=== PATIENT | male | born 1985 | race Caucasian/White ===

== ENCOUNTER 2017-04-07 23:46 | Emergency (ER) | payer SELFPAY ==
--- NOTE | 2017-04-08 04:01 | XRay Report ---
FINAL REPORT EXAM: XR FEMUR 2+V LT HISTORY: r/o fx of femur due inkury from nail gun COMPARISONS: None. FINDINGS: AP and lateral views left femur No radiodense foreign body, bone lesion, periosteal reaction, or fracture. No deformity or gross malalignment. No acute left hip or knee joint findings. IMPRESSION: No radiodense foreign body or fracture involving the left femur/thigh.
--- NOTE | 2017-04-08 04:03 | XRay Report ---
FINAL REPORT EXAM: XR PELVIS 1-2V HISTORY: r/o fragment for nail gun injury COMPARISONS: None. FINDINGS: AP pelvis radiograph Hip joint spaces are intact. No radiodense foreign bodies. Sacroiliac joints and pubic symphysis are unremarkable. No fractures. Small osseous bumps are present at the lateral aspect of the right and left femoral head neck junction IMPRESSION: No radiodense foreign body or fracture in the pelvis.
[2017-04-08 04:23] VITALS: BP 109/63
[2017-04-08] MEDS ORDERED: MOTRIN PO ONE ×2 (04:26→04:27)
[2017-04-08] MEDS ORDERED: NORCO 5/325 PO ONE (04:26)
[2017-04-08] MEDS ORDERED: ZOFRAN ODT PO ONE (04:26)
[2017-04-08] MEDS ORDERED: NORCO 5/325 ONE (04:27)
[2017-04-08] MEDS ORDERED: ZOFRAN ODT ONE (04:27)
[2017-04-08] MEDS ORDERED: BOOSTRIX IM ONE (04:27)
--- NOTE | 2017-04-08 05:55 | Emergency Department Report ---
- General Chief Complaint: Puncture Wound Stated Complaint: LT LEG PAIN Time Seen by Provider: 04/08/17 04:26 Source: patient Mode of arrival: Ambulatory Limitations: No Limitations - History of Present Illness Initial Comments: 31-year-old male past medical history none presents with complaint of accidentally shooting his own left leg with a nail gun. Patient states he was at work approximately 12 hours ago and accidentally discharged nail gun. Nail hit his left inner thigh. Now was approximately 2 inches long. Patient states he immediately was able to grasp nail and remove vitamins entirety. Patient denies any foreign body sensation but is complaining of puncture wound to left leg. No active bleeding as per patient in the last 12 hours. Patient does not know his tetanus vaccine status. Denies allergies to any medicines. Patient speaks Swedish which I speak fluently. Onset/Timin -: hour(s) Extremity Location: Left: Thigh 1 - Puncture wound here - Related Data Previous Rx's Medication Instructions Recorded Last Taken Type Acetaminophen/Codeine [Tylenol 1 tab PO Q6H PRN #12 tab 04/08/17 Unknown Rx /Codeine # 3 tab] Bacitracin Zinc Oint [Antibiotic 1 applicatio TP BID #1 tube 04/08/17 Unknown Rx Oint] Cephalexin [Keflex] 500 mg PO BID #14 capsule 04/08/17 Unknown Rx Ibuprofen [Motrin] 600 mg PO Q8H PRN #30 tablet 04/08/17 Unknown Rx Allergies Allergy/AdvReac Type Severity Reaction Status Date / Time No Known Allergies Allergy Unverified 04/08/17 02:41 ED Review of Systems ROS: Stated complaint: LT LEG PAIN Other details as noted in HPI Constitutional: denies: chills, fever Eyes: denies: eye pain, eye discharge, vision change ENT: denies: ear pain, throat pain Respiratory: denies: cough, shortness of breath, wheezing Cardiovascular: denies: chest pain, palpitations Endocrine: no symptoms reported Gastrointestinal: denies: abdominal pain, nausea, diarrhea Genitourinary: denies: urgency, dysuria Musculoskeletal: denies: back pain, joint swelling, arthralgia Skin: denies: rash, lesions Neurological: denies: headache, weakness, paresthesias Psychiatric: denies: anxiety, depression Hematological/Lymphatic: denies: easy bleeding, easy bruising ED Past Medical Hx - Past Medical History Previous Medical History?: No - Surgical History Past Surgical History?: No - Social History Smoking Status: Never Smoker Substance Use Type: None - Medications Home Medications: Home Medications Medication Instructions Recorded Confirmed Last Taken Type Acetaminophen/Codeine [Tylenol 1 tab PO Q6H PRN #12 tab 04/08/17 Unknown Rx /Codeine # 3 tab] Bacitracin Zinc Oint [Antibiotic 1 applicatio TP BID #1 tube 04/08/17 Unknown Rx Oint] Cephalexin [Keflex] 500 mg PO BID #14 capsule 04/08/17 Unknown Rx Ibuprofen [Motrin] 600 mg PO Q8H PRN #30 tablet 04/08/17 Unknown Rx ED Physical Exam - General Limitations: No Limitations General appearance: alert, in no apparent distress - Head Head exam: Present: atraumatic, normocephalic - Eye Eye exam: Present: normal appearance, PERRL, EOMI - ENT ENT exam: Present: mucous membranes moist - Neck Neck exam: Present: normal inspection - Respiratory Respiratory exam: Present: normal lung sounds bilaterally. Absent: respiratory distress - Cardiovascular Cardiovascular Exam: Present: regular rate, normal rhythm. Absent: systolic murmur, diastolic murmur, rubs, gallop - GI/Abdominal GI/Abdominal exam: Present: soft, normal bowel sounds - Rectal Rectal exam: Present: deferred - Extremities Exam Extremities exam: Present: normal inspection - Expanded Lower Extremity Exam Left Hip exam: Present: normal inspection, full ROM Upper Leg exam: Present: laceration (small less than 1 cm puncture wound left anterior thigh. No active bleeding. No erythema.) Knee exam: Present: normal inspection, full ROM - Back Exam Back exam: Present: normal inspection - Neurological Exam Neurological exam: Present: alert, oriented X3 - Psychiatric Psychiatric exam: Present: normal affect, normal mood - Skin Skin exam: Present: warm, dry, intact, normal color. Absent: rash ED Course Vital Signs 04/08/17 04/08/17 04/08/17 02:32 04:22 04:37 Temperature 98 F Pulse Rate 74 61 Respiratory 18 18 18 Rate Blood Pressure 132/80 Blood Pressure 109/63 [Right] O2 Sat by Pulse 98 98 Oximetry ED Medical Decision Making - Medical Decision Making A/P: Puncture wound left thigh 1-x-rays of the left femur and hip region show no metallic foreign body. Puncture wound less than 1 cm no active bleeding 2-tetanus vaccine update today 3-short course Keflex 4- educated patient on acute wound care. 5- left lower extremity neurovascularly intact patient is ambulatory with good distal pulses and sensation left leg. Critical care attestation.: If time is entered above; I have spent that time in minutes in the direct care of this critically ill patient, excluding procedure time. ED Disposition Clinical Impression: Puncture wound of left thigh Qualifiers: Encounter type: initial encounter Qualified Code(s): S71.132A - Puncture wound without foreign body, left thigh, initial encounter Disposition: TO HOME OR SELFCARE Is pt being admited?: No Does the pt Need Aspirin: No Condition: Stable Instructions: Puncture Wound (ED), Acute Wound Care (ED) Prescriptions: Acetaminophen/Codeine [Tylenol /Codeine # 3 tab] 1 tab PO Q6H PRN #12 tab PRN Reason: Pain Bacitracin Zinc Oint [Antibiotic Oint] 1 applicatio TP BID #1 tube Cephalexin [Keflex] 500 mg PO BID #14 capsule Ibuprofen [Motrin] 600 mg PO Q8H PRN #30 tablet PRN Reason: Pain Referrals: [facility] [Outside] - 3-5 Days [facility] [Outside] - 3-5 Days Forms: Accompanied Note, Work/School Release Form(ED) Time of Disposition: 05:56
[2017-04-08] MEDS ORDERED: TRIPLE ANTIBIOTIC TP ONE (06:00)
== END 2017-04-08 06:10 | disposition home or self-care (01) ==
LOC: ED 23:46
DX: S71.132A Puncture wound without foreign body, left thigh, initial encounter (principal); W45.0XXA Nail entering through skin, initial encounter; Y93.89 Activity, other specified; Y92.89 Other specified places as the place of occurrence of the external cause; Y99.8 Other external cause status
CPT/HCPCS: 72170; 90471; 90715; A6250; Q0162